=== PATIENT | female | born 1975 | race Caucasian/White ===

== ENCOUNTER 2017-07-21 06:10 | Day surgery (SDC) | payer BC ==
[~2017-07-21] VITALS: Ht 167.6 cm; Wt 83.1 kg
[2017-07-21 06:29] VITALS: BP 113/81; PULSE 74; TEMP 98
[2017-07-21] MEDS ORDERED: PRILOSEC 20MG20 MG PO (06:35)
[2017-07-21] MEDS ORDERED: XYZAL5 MG PO (06:35)
[2017-07-21] MEDS ORDERED: COLACE 100100 MG/CAP PO (06:36)
[2017-07-21] MEDS ORDERED: WOMEN'S DAILY1 TAB PO (06:36)
[2017-07-21] MEDS ORDERED: OMEGA-31 SGL PO (06:36)
[2017-07-21 07:30] VITALS: BP 106/79; PULSE 84; TEMP 97.6
[2017-07-21 07:45] VITALS: BP 98/72; PULSE 76
[2017-07-21 08:00] VITALS: BP 102/73; PULSE 80
== END 2017-07-21 08:05 | disposition home or self-care (01) ==
LOC: SDCO 06:10
DX: K21.0 Gastro-esophageal reflux disease with esophagitis (principal); K44.9 Diaphragmatic hernia without obstruction or gangrene; K64.8 Other hemorrhoids; K59.00 Constipation, unspecified; K64.4 Residual hemorrhoidal skin tags; Z90.710 Acquired absence of both cervix and uterus; Z80.0 Family history of malignant neoplasm of digestive organs; Z83.71 Family history of colonic polyps
CPT/HCPCS: OP; J2704; J7120